=== PATIENT | female | born 1945 | race Caucasian/White ===

== ENCOUNTER 2020-09-12 11:30 | Day surgery (SDC) | payer MEDICARE, BC ==
[~2020-09-12] VITALS: Ht 149.9 cm; Wt 34.9 kg
[2020-09-12] MEDS ORDERED: normal saline 1000ml 1,000 ML IV SCH (11:55)
[2020-09-12] MEDS ORDERED: LIDO20SO24 (12:06)
[2020-09-12] MEDS ORDERED: METH2.5T55 PO (12:06)
[2020-09-12] MEDS ORDERED: PARO20TA6 PO (12:06)
[2020-09-12] MEDS ORDERED: FOLI0.4T6 PO (12:06)
[2020-09-12] MEDS ORDERED: VALA100031 PO (12:06)
[2020-09-12] MEDS ORDERED: LISI40TA13 PO (12:06)
[2020-09-12] MEDS ORDERED: HYDR25TA4 PO (12:06)
[2020-09-12] MEDS ORDERED: HYDR-3972 PO (12:06)
[2020-09-12] MEDS ORDERED: VITAMIN D PO (12:11)
[2020-09-12] MEDS ORDERED: MAGN250T11 PO (12:11)
[2020-09-12] MEDS ORDERED: MELA10TA PO (12:11)
[2020-09-12] MEDS ORDERED: DIPH-423 PO (12:11)
[2020-09-12] MEDS ORDERED: BUPR1PAT20 (12:11)
[2020-09-12] MEDS ORDERED: [UNRECOGNIZED DRUG - CODE] (12:13)
[2020-09-12 12:35] VITALS: BP 133/72
[2020-09-12 13:25] LABS: BASOPHILS # (AUTO) 0.1 X10'3 (0-0.2); BASOPHILS % (AUTO) 0.8 % (0-1); EOSINOPHILS # (AUTO) 0.3 X10'3 (0-0.9); EOSINOPHILS % (AUTO) 3.2 % (0-6); HEMATOCRIT 38.2 % (35.0-45.0); HEMOGLOBIN 12.6 g/dl (12.0-16.0); LYMPHOCYTES # (AUTO) 1.9 X10'3 (1.1-4.8); LYMPHOCYTES % (AUTO) 18.6 % (21-51); MEAN CORPUSCULAR HEMOGLOBIN 35.3 PG (27.0-31.0); MEAN CORPUSCULAR VOLUME 107.2 FL (78-98); MEAN PLATELET VOLUME 8.2 FL (7.4-10.4); MONOCYTES % (AUTO) 9.2 % (2-12); NEUTROPHILS # (AUTO) 7.1 X10'3 (1.8-7.7); NEUTROPHILS % (AUTO) 68.2 % (42-75); PLATELET COUNT 262 X10'3 (140-440); RED BLOOD COUNT 3.56 X10'6 (4.20-5.60); RED CELL DISTRIBUTION WIDTH 12.4 % (11.5-14.5); WHITE BLOOD COUNT 10.4 X10'3 (4.5-11.0)
[2020-09-12] MEDS ORDERED: glucagon, human recombinant 1mg kit ONE (15:35)
[2020-09-12] MEDS ORDERED: fentaNYL/PF 50MCG/1 ML 2ML syringe ONE ×2 (15:36→16:19)
[2020-09-12] MEDS ORDERED: LIDOcaine 1%/PF 5ML 10 MG/ML VIAL ONE (15:36)
[2020-09-12] MEDS ORDERED: iohexol 300 MG/1 ML 50ml polymer ONE (15:36)
[2020-09-12] MEDS ORDERED: midazolam 1 mg/ML 2ml injection ONE ×2 (15:36→16:19)
[2020-09-12 16:51] VITALS: BP 135/86
[2020-09-12 17:01] VITALS: BP 146/99
[2020-09-12 17:15] VITALS: BP 152/75
[2020-09-12 17:30] VITALS: BP 149/70
== END 2020-09-12 18:55 | disposition home or self-care (01) ==
LOC: SSTAY O 11:30
PROVIDERS: ATTEND Radiology Diagnostic Radiology
DX: C02.2 Malignant neoplasm of ventral surface of tongue (principal); I10 Essential (primary) hypertension; F32.9 Major depressive disorder, single episode, unspecified; M19.90 Unspecified osteoarthritis, unspecified site; Z79.899 Other long term (current) drug therapy; Z20.822 Contact with and (suspected) exposure to COVID-19; Z90.710 Acquired absence of both cervix and uterus; Z87.442 Personal history of urinary calculi; Z98.890 Other specified postprocedural states; Z87.891 Personal history of nicotine dependence
CPT/HCPCS: 36415; 49440; 85025; 87635; 99152; 99153; B4087; C1713; C9803; J1610; J2250; J3010; Q9967